=== PATIENT | female | born 1970 | race Caucasian/White ===

== ENCOUNTER → 2019-09-22 | Outpatient (REF) | payer OTHER ==
[2019-09-22 13:23] LABS: BASO % 0.4 % (0.0-1.0); EOS # 0.2 10^3/uL (0.0-0.5); EOS % 3.4 % (0.0-3.0); HEMATOCRIT 42.4 % (36.0-47.0); HEMOGLOBIN 13.4 g/dl (12.0-15.5); LYMPH # 1.6 10^3/uL (1.5-5.0); LYMPH % 34.7 % (24.0-44.0); MEAN CORPUSCULAR HEMOGLOBIN 30.2 pg (27.0-33.0); MEAN CORPUSCULAR HGB CONC 31.6 g/dl (32.0-36.5); MEAN CORPUSCULAR VOLUME 95.7 fl (80.0-96.0); MONO # 0.3 10^3/uL (0.0-0.8); MONO % 5.8 % (0.0-5.0); NEUTROPHILS # 2.6 10^3/uL (1.5-8.5); NEUTROPHILS % 55.5 % (36.0-66.0); PLATELET COUNT, AUTOMATED 306 10^3/uL (150-450); RED BLOOD COUNT 4.43 10^6/uL (4.00-5.40); WHITE BLOOD COUNT 4.6 10^3/uL (4.0-10.0)
[2019-09-22 13:47] LABS: ALBUMIN 4.6 GM/DL (3.2-5.2); ALT/SGPT 20 U/L (12-78); BILIRUBIN,TOTAL 0.3 MG/DL (0.2-1.0); BLOOD UREA NITROGEN 14 MG/DL (7-18); CALCIUM LEVEL 9.7 MG/DL (8.5-10.1); CARBON DIOXIDE LEVEL 29 MEQ/L (21-32); CHLORIDE LEVEL 109 MEQ/L (98-107); CREATININE FOR GFR 0.81 MG/DL (0.55-1.30); GLOMERULAR FILTRATION RATE > 60.0 (>51); GLUCOSE, FASTING 83 MG/DL (70-100); POTASSIUM SERUM 4.4 MEQ/L (3.5-5.1); RHEUMATOID FACTOR QUANT < 10.0 IU/ML (<15.0); SODIUM LEVEL 142 MEQ/L (136-145); TOTAL PROTEIN 7.7 GM/DL (6.4-8.2)
[2019-09-22 13:55] LABS: FOLATE 11.9 NG/ML; TOTAL 25(OH) VITAMIN D 15.7 NG/ML (30.0-100.0); VITAMIN B12 LEVEL 251 PG/ML
[2019-09-22 13:59] LABS: ERYTHROCYTE SEDIMENTATION RATE 6 mm/hr (0-30)
[2019-09-23 14:42] LABS: ANTINUCLEAR ANTIBODIES DIRECT Negative (Negative)
== END ==
LOC: M LABNEURO 12:57
PROVIDERS: ATTEND Psychiatry & Neurology Neurology
DX: R51 Headache (principal)

== ENCOUNTER 2023-01-29 15:39 | Inpatient (IN) | payer OTHER ==
[~2023-01-29] VITALS: Ht 160 cm; Wt 70.5 kg
[2023-01-29] MEDS ORDERED: TRAZ-257 PO (15:48)
[2023-01-29] MEDS ORDERED: SIMV20TA22 PO (15:48)
[2023-01-29] MEDS ORDERED: LAMO100T3 PO (15:48)
[2023-01-29] MEDS ORDERED: ESTR625TA PO (15:48)
[2023-01-29] MEDS ORDERED: ZIPR60CA20 PO (15:48)
[2023-01-29 17:25] LABS: HEMATOCRIT 39.5 % (36.0-47.0); HEMOGLOBIN 12.6 g/dl (12.0-15.5); MEAN CORPUSCULAR HGB CONC 31.9 g/dl (32.0-36.5); PLATELET COUNT, AUTOMATED 262 10^3/uL (150-450); WHITE BLOOD COUNT 6.1 10^3/uL (4.0-10.0)
[2023-01-29 17:30] LABS: AMPHETAMINES LEVEL URINE NEGATIVE (NEGATIVE); BARBITURATES URINE NEGATIVE (NEGATIVE); BENZODIAZEPINES URINE NEGATIVE (NEGATIVE); COCAINE METABOLITE URINE NEGATIVE (NEGATIVE); METHADONE URINE NEGATIVE (NEGATIVE); OPIATES URINE NEGATIVE (NEGATIVE); PHENCYCLIDINE URINE NEGATIVE (NEGATIVE)
[2023-01-29 17:31] LABS: CANNABINOIDS URINE NEGATIVE (NEGATIVE)
[2023-01-29 17:47] LABS: ETHYL ALCOHOL (ETHANOL) < 0.003 % (0.000-0.010)
[2023-01-29 17:48] LABS: ACETAMINOPHEN LEVEL < 2.0 UG/ML (10.0-20.0)
[2023-01-29 17:49] LABS: ALBUMIN 4.4 G/DL (3.2-5.2); ALKALINE PHOSPHATASE 69 U/L (46-116); ALT/SGPT 18 U/L (7.0-40); AST/SGOT < 8 U/L (<34); BILIRUBIN,DIRECT 0.1 MG/DL (<0.4); BILIRUBIN,TOTAL 0.4 MG/DL (0.3-1.2); BLOOD UREA NITROGEN 11 MG/DL (9-23); CARBON DIOXIDE LEVEL 28 MMOL/L (20-31); CHLORIDE LEVEL 102 MMOL/L (98-107); CREATININE FOR GFR 0.71 MG/DL (0.55-1.30); GLOMERULAR FILTRATION RATE > 60.0 (>51); GLUCOSE, FASTING 76 MG/DL (60-100); POTASSIUM SERUM 4.2 MMOL/L (3.5-5.1); SALICYLATE LEVEL < 3.0 MG/DL (<30); SODIUM LEVEL 138 MMOL/L (136-145); TOTAL PROTEIN 7.2 G/DL (5.7-8.2)
[2023-01-29 17:50] LABS: THYROID STIMULATING HORMONE 5.095 uIU/ML (0.55-4.78)
[2023-01-29] MEDS ORDERED: AZIT-12 PO (20:45)
[2023-01-29] MEDS ORDERED: MUCI30TA5 PO (20:45)
[2023-01-29] MEDS ORDERED: ACET-897 PO (20:45)
[2023-01-29] MEDS ORDERED: HOME MED LIST COMPLETE! XX SCH (20:45)
[2023-01-29] MEDS ORDERED: BENZ200C70 PO (20:45)
[2023-01-29] MEDS ORDERED: lamoTRIgine 100MG TAB PO SCH (21:00)
[2023-01-29] MEDS ORDERED: traZODone 100 MG TAB PO SCH (21:00)
[2023-01-29] MEDS ORDERED: MAALOX 30 ML SUSP *UDC PO PRN (23:05)
[2023-01-29] MEDS: SIMVASTATIN 20 MG TAB PO SCH (23:29)
[2023-01-30 00:45] VITALS: BP 150/67
[2023-01-30] MEDS: ACETAMINOPHEN TAB 650MG DOSE (2X325MG) PO PRN ×2 (04:42→17:12)
[2023-01-30 06:31] VITALS: BP 140/63
[2023-01-30] MEDS: MOM 30ML SUSPENSION UDC PO PRN (08:33)
[2023-01-30] MEDS: ZIPRASIDONE 80 MG CAP (GEODON) PO SCH (17:08)
[2023-01-30 17:19] VITALS: BP 129/62
[2023-01-30] MEDS ORDERED: ZIPRASIDONE 20MG CAPSULE (GEODON) PO SCH (18:00)
[2023-01-30] MEDS: lamoTRIgine 100MG TAB PO SCH (20:38)
[2023-01-30] MEDS: SIMVASTATIN 20 MG TAB PO SCH (20:38)
[2023-01-30] MEDS: traZODone 50 MG TAB PO SCH (20:38)
[2023-01-30] MEDS: oxyBUTYnin 5 MG TAB PO SCH (20:38)
[2023-01-31 06:55] VITALS: BP 117/61
[2023-01-31] MEDS: ACETAMINOPHEN TAB 650MG DOSE (2X325MG) PO PRN (07:08)
[2023-01-31] MEDS: lamoTRIgine 100MG TAB PO SCH ×2 (08:35→21:22)
[2023-01-31] MEDS: oxyBUTYnin 5 MG TAB PO SCH ×2 (08:35→21:22)
[2023-01-31] MEDS ORDERED: hydrOXYzine 50 MG TAB PO PRN (11:20)
[2023-01-31] MEDS ORDERED: SUMAtriptan SUCCINATE 25 MG TAB PO ONE (11:20)
[2023-01-31] MEDS: MOM 30ML SUSPENSION UDC PO PRN (15:12)
[2023-01-31] MEDS: OLANZapine ORAL DISINTEGRATING TAB 5MG PO PRN (15:14)
[2023-01-31] MEDS: ZIPRASIDONE 80 MG CAP (GEODON) PO SCH (18:16)
[2023-01-31 18:26] VITALS: BP 138/82
[2023-01-31] MEDS: SIMVASTATIN 20 MG TAB PO SCH (21:22)
[2023-01-31] MEDS: traZODone 50 MG TAB PO SCH (21:22)
[2023-02-01 06:40] VITALS: BP 131/75
[2023-02-01] MEDS: oxyBUTYnin 5 MG TAB PO SCH ×2 (09:00→21:16)
[2023-02-01] MEDS: lamoTRIgine 100MG TAB PO SCH ×2 (09:00→21:16)
[2023-02-01 09:34] LABS: CHOLESTEROL RISK RATIO 1.81 (<5); HDL CHOLESTEROL 123.8 MG/DL (>40); NON-HDL-C 101.2 MG/DL
[2023-02-01] MEDS: MOM 30ML SUSPENSION UDC PO PRN (11:20)
[2023-02-01] MEDS: OLANZapine ORAL DISINTEGRATING TAB 5MG PO PRN (11:23)
[2023-02-01] MEDS ORDERED: diphenhydrAMINE 25MG CAP PO ONE (16:25)
[2023-02-01] MEDS: ZIPRASIDONE 80 MG CAP (GEODON) PO SCH (17:24)
[2023-02-01 17:30] VITALS: BP 120/81
[2023-02-01] MEDS: traZODone 50 MG TAB PO SCH (21:16)
[2023-02-01] MEDS: SIMVASTATIN 20 MG TAB PO SCH (21:16)
[2023-02-02 05:51] VITALS: BP 137/62
[2023-02-02] MEDS: lamoTRIgine 100MG TAB PO SCH ×2 (09:09→20:08)
[2023-02-02] MEDS: oxyBUTYnin 5 MG TAB PO SCH ×2 (09:09→20:08)
[2023-02-02] MEDS: ACETAMINOPHEN TAB 650MG DOSE (2X325MG) PO PRN (13:06)
[2023-02-02 16:20] VITALS: BP 136/68
[2023-02-02] MEDS ORDERED: ISOVUE-370 76% 100ML VIAL As Ordered ONE (16:23)
[2023-02-02] MEDS: ZIPRASIDONE 80 MG CAP (GEODON) PO SCH (17:04)
[2023-02-02 17:25] LABS: APPEARANCE, URINE CLEAR (CLEAR); BACTERIA, URINE AUTO NEGATIVE (NEGATIVE); BILIRUBIN, URINE AUTO NEGATIVE (NEGATIVE); BLOOD, URINE BLOOD NEGATIVE (NEGATIVE); COLOR, URINE STRAW (YELLOW); GLUCOSE, URINE (UA) AUTO NEGATIVE (NEGATIVE); KETONE, URINE AUTO NEGATIVE (NEGATIVE); LEUKOCYTE ESTERASE, URINE AUTO NEGATIVE (NEGATIVE); NITRITE, URINE AUTO NEGATIVE (NEGATIVE); PROTEIN, URINE AUTO NEGATIVE (NEGATIVE); RBC, URINE AUTO 0 /HPF (0-3); SPECIFIC GRAVITY URINE AUTO 1.027 (1.002-1.035); SQUAMOUS EPITHELIAL CELL UR AU 4 /HPF (0-6); UROBILINOGEN, URINE AUTO 0.2 mg/dL (0.0-2.0); WBC, URINE AUTO 1 /HPF (0-3)
[2023-02-02 17:35] VITALS: BP 137/63
[2023-02-02 18:00] VITALS: BP 137/63
[2023-02-02] MEDS ORDERED: ONDANSETRON 4MG ORAL DISINTEGRATING TAB PO PRN (20:00)
[2023-02-02] MEDS: SIMVASTATIN 20 MG TAB PO SCH (20:08)
[2023-02-02] MEDS: traZODone 100 MG TAB PO PRN (20:08)
[2023-02-02] MEDS: TAMSULOSIN 0.4 MG CAP PO SCH (20:11)
[2023-02-02] MEDS: IBUPROFEN 800 MG TAB PO PRN (23:48)
[2023-02-03 06:42] VITALS: BP 132/59
[2023-02-03] MEDS: lamoTRIgine 100MG TAB PO SCH ×2 (08:13→20:08)
[2023-02-03] MEDS: oxyBUTYnin 5 MG TAB PO SCH ×2 (08:14→20:08)
[2023-02-03] MEDS: IBUPROFEN 800 MG TAB PO PRN ×2 (08:14→16:43)
[2023-02-03] MEDS: ACETAMINOPHEN TAB 650MG DOSE (2X325MG) PO PRN (10:02)
[2023-02-03 17:26] VITALS: BP 145/63
[2023-02-03] MEDS: ZIPRASIDONE 80 MG CAP (GEODON) PO SCH (18:22)
[2023-02-03] MEDS ORDERED: LAMO100T80 PO (19:24)
[2023-02-03] MEDS ORDERED: HYDR-3363 PO (19:24)
[2023-02-03] MEDS ORDERED: OXYB5TAB10 PO (19:24)
[2023-02-03] MEDS ORDERED: GEOD80CA PO (19:24)
[2023-02-03] MEDS ORDERED: FLOM0.4C39 PO (19:24)
[2023-02-03] MEDS ORDERED: TRAZ-257 PO (19:24)
[2023-02-03] MEDS: TAMSULOSIN 0.4 MG CAP PO SCH (20:08)
[2023-02-03] MEDS: SIMVASTATIN 20 MG TAB PO SCH (20:08)
[2023-02-03] MEDS: traZODone 100 MG TAB PO PRN (20:09)
[2023-02-04 06:32] VITALS: BP 143/70
[2023-02-04] MEDS: oxyBUTYnin 5 MG TAB PO SCH (09:13)
[2023-02-04] MEDS: lamoTRIgine 100MG TAB PO SCH (09:13)
== END 2023-02-04 13:14 | disposition home or self-care (01) | DRG 750 ==
LOC: M ED 15:39 → M ED INP 19:45 → M PSY 01-30 00:45
PROVIDERS: ADMIT Student in an Organized Health Care Education/Training Program; ATTEND Psychiatry & Neurology Psychiatry
DX: F25.0 Schizoaffective disorder, bipolar type (principal); K59.00 Constipation, unspecified; N32.89 Other specified disorders of bladder; G43.909 Migraine, unspecified, not intractable, without status migrainosus; R10.9 Unspecified abdominal pain; R11.2 Nausea with vomiting, unspecified; Z79.899 Other long term (current) drug therapy; Z88.0 Allergy status to penicillin; Z81.8 Family history of other mental and behavioral disorders; Z88.1 Allergy status to other antibiotic agents; Z88.2 Allergy status to sulfonamides; Z88.8 Allergy status to other drugs, medicaments and biological substances

== ENCOUNTER 2023-03-30 06:22 | Inpatient (IN) | payer OTHER ==
[~2023-03-30] VITALS: Ht 160 cm; Wt 62.8 kg
[~2023-03-30 06:22] MED LIST: ACET-897 PO; AZIT-12 PO; BENZ200C70 PO; ESTR625TA PO; FLOM0.4C39 PO; GEOD80CA PO; HYDR-3363 PO; LAMO100T3 PO; LAMO100T80 PO; MUCI30TA5 PO; OXYB5TAB10 PO; SIMV20TA22 PO; TRAZ-257 PO; ZIPR60CA20 PO
[2023-03-30 07:33] LABS: HEMATOCRIT 42.3 % (36.0-47.0); HEMOGLOBIN 13.8 g/dl (12.0-15.5); MEAN CORPUSCULAR HEMOGLOBIN 30.2 pg (27.0-33.0); MEAN CORPUSCULAR HGB CONC 32.6 g/dl (32.0-36.5); MEAN CORPUSCULAR VOLUME 92.6 fl (80.0-96.0); PLATELET COUNT, AUTOMATED 214 10^3/uL (150-450); RED BLOOD COUNT 4.57 10^6/uL (4.00-5.40); WHITE BLOOD COUNT 4.1 10^3/uL (4.0-10.0)
[2023-03-30 08:04] LABS: AMPHETAMINES LEVEL URINE NEGATIVE (NEGATIVE); BARBITURATES URINE NEGATIVE (NEGATIVE); BENZODIAZEPINES URINE NEGATIVE (NEGATIVE); CANNABINOIDS URINE NEGATIVE (NEGATIVE); COCAINE METABOLITE URINE NEGATIVE (NEGATIVE); METHADONE URINE NEGATIVE (NEGATIVE); OPIATES URINE NEGATIVE (NEGATIVE); PHENCYCLIDINE URINE NEGATIVE (NEGATIVE)
[2023-03-30 08:07] LABS: ETHYL ALCOHOL (ETHANOL) < 0.003 % (0.000-0.010)
[2023-03-30 08:08] LABS: ACETAMINOPHEN LEVEL < 2.0 UG/ML (10.0-20.0); SALICYLATE LEVEL < 3.0 MG/DL (<30)
[2023-03-30 08:14] LABS: ALBUMIN 4.9 G/DL (3.2-5.2); ALKALINE PHOSPHATASE 59 U/L (46-116); ALT/SGPT 20 U/L (7.0-40); AST/SGOT 9 U/L (<34); BILIRUBIN,DIRECT 0.2 MG/DL (<0.4); BILIRUBIN,TOTAL 0.6 MG/DL (0.3-1.2); BLOOD UREA NITROGEN 18 MG/DL (9-23); CALCIUM LEVEL 10.3 MG/DL (8.5-10.1); CARBON DIOXIDE LEVEL 28 MMOL/L (20-31); CHLORIDE LEVEL 101 MMOL/L (98-107); CREATININE FOR GFR 0.82 MG/DL (0.55-1.30); GLOMERULAR FILTRATION RATE > 60.0 (>51); GLUCOSE, FASTING 85 MG/DL (60-100); SODIUM LEVEL 138 MMOL/L (136-145); THYROID STIMULATING HORMONE 3.348 uIU/ML (0.55-4.78); TOTAL PROTEIN 7.3 G/DL (5.7-8.2)
[2023-03-30 10:07] LABS: APPEARANCE, URINE CLEAR (CLEAR); BACTERIA, URINE AUTO NEGATIVE (NEGATIVE); BILIRUBIN, URINE AUTO NEGATIVE (NEGATIVE); BLOOD, URINE BLOOD NEGATIVE (NEGATIVE); COLOR, URINE YELLOW (YELLOW); GLUCOSE, URINE (UA) AUTO NEGATIVE (NEGATIVE); KETONE, URINE AUTO TRACE mg/dL (NEGATIVE); LEUKOCYTE ESTERASE, URINE AUTO NEGATIVE (NEGATIVE); NITRITE, URINE AUTO NEGATIVE (NEGATIVE); PROTEIN, URINE AUTO NEGATIVE (NEGATIVE); RBC, URINE AUTO 1 /HPF (0-3); SPECIFIC GRAVITY URINE AUTO 1.024 (1.002-1.035); SQUAMOUS EPITHELIAL CELL UR AU 1 /HPF (0-6); UROBILINOGEN, URINE AUTO 0.2 mg/dL (0.0-2.0); WBC, URINE AUTO 2 /HPF (0-3)
[2023-03-30] MEDS ORDERED: LORazepam 1 MG TAB PO ONE (11:55)
[2023-03-30] MEDS ORDERED: PHENAZOPYRIDINE 100 MG TAB PO ONE (11:55)
[2023-03-30] MEDS ORDERED: MAALOX 30 ML SUSP *UDC PO PRN (18:40)
[2023-03-30] MEDS ORDERED: MOM 30ML SUSPENSION UDC PO PRN (18:40)
[2023-03-30] MEDS ORDERED: OLANZapine ORAL DISINTEGRATING TAB 5MG PO PRN (18:40)
[2023-03-30 20:16] VITALS: BP 125/58; TEMP 97.6; O2SAT 98
[2023-03-30] MEDS ORDERED: ZIPR80CA30 PO (20:26)
[2023-03-30] MEDS ORDERED: OXYB10TA23 PO (20:29)
[2023-03-30] MEDS ORDERED: TRAZ-189 PO (20:29)
[2023-03-30] MEDS ORDERED: PANT40TA29 PO (20:29)
[2023-03-30] MEDS ORDERED: TAMS1CAP17 PO (20:29)
[2023-03-30] MEDS ORDERED: LAMO100T3 PO (20:29)
[2023-03-30] MEDS ORDERED: HOME MED LIST COMPLETE! XX SCH (20:30)
[2023-03-30] MEDS: traZODone 50 MG TAB PO PRN (20:57)
[2023-03-30] MEDS: ACETAMINOPHEN TAB 650MG DOSE (2X325MG) PO PRN (21:02)
[2023-03-31 06:56] VITALS: BP 113/69; TEMP 97; O2SAT 97
[2023-03-31] MEDS: ACETAMINOPHEN TAB 650MG DOSE (2X325MG) PO PRN ×2 (07:36→20:16)
[2023-03-31] MEDS: IBUPROFEN 400MG TAB PO PRN (08:17)
[2023-03-31] MEDS: oxyBUTYnin 5 MG TAB PO SCH ×2 (14:19→20:15)
[2023-03-31 18:00] VITALS: BP 146/78; TEMP 97
[2023-03-31] MEDS: traZODone 50 MG TAB PO PRN (20:16)
[2023-03-31] MEDS ORDERED: PALIPERIDONE 3MG ER TAB (INVEGA) PO SCH (21:00)
[2023-04-01] MEDS: IBUPROFEN 400MG TAB PO PRN ×2 (02:24→11:46)
[2023-04-01] MEDS: ACETAMINOPHEN TAB 650MG DOSE (2X325MG) PO PRN (04:27)
[2023-04-01 06:42] VITALS: BP 130/61; TEMP 97.3; O2SAT 98
[2023-04-01] MEDS: oxyBUTYnin 5 MG TAB PO SCH ×2 (08:04→20:18)
[2023-04-01] MEDS: PANTOPRAZOLE 40MG TAB (PROTONIX) PO SCH ×2 (14:26→20:18)
[2023-04-01] MEDS: SUMAtriptan SUCCINATE 25 MG TAB PO PRN (17:41)
[2023-04-01 18:06] VITALS: BP 140/63; TEMP 98.1; O2SAT 99
[2023-04-01] MEDS: TAMSULOSIN 0.4 MG CAP PO SCH (20:18)
[2023-04-01] MEDS: PALIPERIDONE 3MG ER TAB (INVEGA) PO SCH (20:18)
[2023-04-01] MEDS: SIMVASTATIN 20 MG TAB PO SCH (20:18)
[2023-04-01] MEDS ORDERED: traZODone 100 MG TAB PO SCH (21:00)
[2023-04-02] MEDS: ACETAMINOPHEN TAB 650MG DOSE (2X325MG) PO PRN (04:36)
[2023-04-02 06:49] VITALS: BP 115/62; TEMP 97.7; O2SAT 99
[2023-04-02] MEDS ORDERED: lamoTRIgine 25MG TAB PO ONE (08:50)
[2023-04-02] MEDS ORDERED: BACLOFEN 10 MG TAB PO ONE (08:55)
[2023-04-02] MEDS: PALIPERIDONE 3MG ER TAB (INVEGA) PO SCH ×2 (09:09→20:21)
[2023-04-02] MEDS: PANTOPRAZOLE 40MG TAB (PROTONIX) PO SCH ×2 (09:09→20:21)
[2023-04-02] MEDS: oxyBUTYnin 5 MG TAB PO SCH ×2 (09:09→20:21)
[2023-04-02 16:48] VITALS: BP 129/60; TEMP 98.5; O2SAT 96
[2023-04-02] MEDS: TAMSULOSIN 0.4 MG CAP PO SCH (20:21)
[2023-04-02] MEDS: SIMVASTATIN 20 MG TAB PO SCH (20:21)
[2023-04-02] MEDS: traZODone 100 MG TAB PO PRN (20:21)
[2023-04-03] MEDS: SUMAtriptan SUCCINATE 25 MG TAB PO PRN (03:50)
[2023-04-03 06:54] VITALS: BP 152/70; TEMP 97.1; O2SAT 97
[2023-04-03] MEDS: PALIPERIDONE 3MG ER TAB (INVEGA) PO SCH ×2 (08:01→20:17)
[2023-04-03] MEDS: lamoTRIgine 25MG TAB PO SCH (08:02)
[2023-04-03] MEDS: oxyBUTYnin 5 MG TAB PO SCH ×2 (08:02→20:17)
[2023-04-03] MEDS: IBUPROFEN 400MG TAB PO PRN (08:02)
[2023-04-03] MEDS: PANTOPRAZOLE 40MG TAB (PROTONIX) PO SCH ×2 (08:02→20:17)
[2023-04-03] MEDS: LIDOCAINE 5% (LIDODERM) PATCH TD SCH (10:52)
[2023-04-03 16:51] VITALS: BP 128/62; TEMP 98.2; O2SAT 95
[2023-04-03] MEDS: TAMSULOSIN 0.4 MG CAP PO SCH (20:17)
[2023-04-03] MEDS: traZODone 100 MG TAB PO PRN (20:17)
[2023-04-03] MEDS: SIMVASTATIN 20 MG TAB PO SCH (20:17)
[2023-04-04] MEDS: SUMAtriptan SUCCINATE 25 MG TAB PO PRN (05:55)
[2023-04-04 06:18] VITALS: BP 123/64; TEMP 97.9; O2SAT 96
[2023-04-04 06:56] LABS: CHOLESTEROL RISK RATIO 2.27 (<5); HDL CHOLESTEROL 87.3 MG/DL (>40); LDL CHOLESTEROL 78.3 MG/DL (<100); NON-HDL-C 111.7 MG/DL
[2023-04-04] MEDS: oxyBUTYnin 5 MG TAB PO SCH ×2 (09:13→20:21)
[2023-04-04] MEDS: PANTOPRAZOLE 40MG TAB (PROTONIX) PO SCH ×2 (09:14→20:21)
[2023-04-04] MEDS: PALIPERIDONE 3MG ER TAB (INVEGA) PO SCH ×2 (09:14→20:21)
[2023-04-04] MEDS: lamoTRIgine 25MG TAB PO SCH (09:14)
[2023-04-04] MEDS: LIDOCAINE 5% (LIDODERM) PATCH TD SCH (09:14)
[2023-04-04] MEDS ORDERED: PALIPERIDONE PAL 234MG/1.5ML INJ (INVEGA)(FREE PSY INPT ONLY) IM ONE (12:00)
[2023-04-04 18:58] VITALS: BP 138/71; TEMP 97.6
[2023-04-04] MEDS: TAMSULOSIN 0.4 MG CAP PO SCH (20:21)
[2023-04-04] MEDS: SIMVASTATIN 20 MG TAB PO SCH (20:21)
[2023-04-04] MEDS: traZODone 100 MG TAB PO PRN (20:21)
[2023-04-05] MEDS: SUMAtriptan SUCCINATE 25 MG TAB PO PRN (06:07)
[2023-04-05 06:15] VITALS: BP 135/62; TEMP 98.9; O2SAT 98
[2023-04-05] MEDS ORDERED: INVE234I IM (07:01)
[2023-04-05] MEDS ORDERED: LIDO5TD TD (07:01)
[2023-04-05] MEDS ORDERED: PALI1TAB2 PO (07:01)
[2023-04-05] MEDS ORDERED: LAMI25TA PO (07:01)
[2023-04-05] MEDS ORDERED: SUMA25TA3 PO (08:59)
[2023-04-05] MEDS: PANTOPRAZOLE 40MG TAB (PROTONIX) PO SCH (09:18)
[2023-04-05] MEDS: oxyBUTYnin 5 MG TAB PO SCH (09:18)
[2023-04-05] MEDS: lamoTRIgine 25MG TAB PO SCH (09:18)
[2023-04-05] MEDS: PALIPERIDONE 3MG ER TAB (INVEGA) PO SCH (09:18)
[2023-04-05] MEDS: LIDOCAINE 5% (LIDODERM) PATCH TD SCH (09:21)
== END 2023-04-05 10:24 | disposition home or self-care (01) | DRG 750 ==
LOC: EDBD 06:22 → M ED 06:22 → M ED INP 18:40 → M PSY 20:01
PROVIDERS: ADMIT Student in an Organized Health Care Education/Training Program; ATTEND Student in an Organized Health Care Education/Training Program
DX: F25.0 Schizoaffective disorder, bipolar type (principal); G43.909 Migraine, unspecified, not intractable, without status migrainosus; R45.851 Suicidal ideations; Z87.442 Personal history of urinary calculi; M54.31 Sciatica, right side; M54.32 Sciatica, left side; Z79.899 Other long term (current) drug therapy; Z88.0 Allergy status to penicillin; Z88.1 Allergy status to other antibiotic agents; Z88.2 Allergy status to sulfonamides; Z88.8 Allergy status to other drugs, medicaments and biological substances

== ENCOUNTER 2023-08-12 12:17 | Inpatient (IN) | payer MEDICAID, OTHER ==
[~2023-08-12] VITALS: Ht 160 cm; Wt 63.0 kg
[~2023-08-12 12:17] MED LIST changes: +INVE234I IM; +LAMI25TA PO; +LIDO5TD TD; +OXYB10TA23 PO; -OXYB5TAB10 PO; +OXYB5TAB11 PO; +PALI1TAB2 PO; +PANT40TA29 PO; +SUMA25TA3 PO; +TAMS1CAP17 PO; +TRAZ-189 PO; +ZIPR80CA30 PO
[2023-08-12 12:45] LABS: HEMATOCRIT 35.9 % (36.0-47.0); HEMOGLOBIN 11.8 g/dl (12.0-15.5); MEAN CORPUSCULAR HEMOGLOBIN 30.6 pg (27.0-33.0); MEAN CORPUSCULAR HGB CONC 32.9 g/dl (32.0-36.5); PLATELET COUNT, AUTOMATED 245 10^3/uL (150-450); RED BLOOD COUNT 3.86 10^6/uL (4.00-5.40); WHITE BLOOD COUNT 5.8 10^3/uL (4.0-10.0)
[2023-08-12 13:09] LABS: AMPHETAMINES LEVEL URINE NEGATIVE (NEGATIVE); BARBITURATES URINE NEGATIVE (NEGATIVE); BENZODIAZEPINES URINE NEGATIVE (NEGATIVE); COCAINE METABOLITE URINE NEGATIVE (NEGATIVE); METHADONE URINE NEGATIVE (NEGATIVE); OPIATES URINE NEGATIVE (NEGATIVE)
[2023-08-12 13:10] LABS: CANNABINOIDS URINE NEGATIVE (NEGATIVE); PHENCYCLIDINE URINE NEGATIVE (NEGATIVE)
[2023-08-12 13:13] LABS: ETHYL ALCOHOL (ETHANOL) 0.005 % (0.000-0.010)
[2023-08-12 13:15] LABS: ALBUMIN 3.9 G/DL (3.2-5.2); ALKALINE PHOSPHATASE 74 U/L (46-116); ALT/SGPT 14 U/L (7.0-40); AST/SGOT 11 U/L (<34); BILIRUBIN,DIRECT < 0.1 MG/DL (<0.4); BILIRUBIN,TOTAL < 0.2 MG/DL (0.3-1.2); BLOOD UREA NITROGEN 13 MG/DL (9-23); CALCIUM LEVEL 9.7 MG/DL (8.5-10.1); CARBON DIOXIDE LEVEL 25 MMOL/L (20-31); CHLORIDE LEVEL 103 MMOL/L (98-107); CREATININE FOR GFR 0.71 MG/DL (0.55-1.30); GLOMERULAR FILTRATION RATE > 60.0 (>51); GLUCOSE, FASTING 108 MG/DL (60-100); POTASSIUM SERUM 4.1 MMOL/L (3.5-5.1); SALICYLATE LEVEL < 3.0 MG/DL (<30); SODIUM LEVEL 139 MMOL/L (136-145); TOTAL PROTEIN 6.6 G/DL (5.7-8.2)
[2023-08-12 13:17] LABS: THYROID STIMULATING HORMONE 4.838 uIU/ML (0.55-4.78)
[2023-08-12] MEDS ORDERED: MOM 30ML SUSPENSION UDC PO PRN (19:10)
[2023-08-12] MEDS ORDERED: MAALOX 30 ML SUSP *UDC PO PRN (19:10)
[2023-08-12] MEDS ORDERED: IBUPROFEN 400MG TAB PO PRN (19:10)
[2023-08-12] MEDS ORDERED: diphenhydrAMINE 25MG CAP PO PRN (19:10)
[2023-08-12] MEDS ORDERED: LAMI1TAB7 PO (20:24)
[2023-08-12 21:02] VITALS: BP 130/60; TEMP 98.2; O2SAT 98
[2023-08-12] MEDS ORDERED: VITA100093 PO (22:16)
[2023-08-12] MEDS ORDERED: LAMO25TA4 PO (22:16)
[2023-08-12] MEDS ORDERED: FLON1SPR NARES (22:16)
[2023-08-12] MEDS ORDERED: INVE234I IM (22:16)
[2023-08-12] MEDS ORDERED: HYDR-3363 PO (22:16)
[2023-08-12] MEDS ORDERED: SUMA25TA3 PO (22:16)
[2023-08-12] MEDS ORDERED: HOME MED LIST COMPLETE! XX SCH (22:20)
[2023-08-12] MEDS: traZODone 100 MG TAB PO SCH (22:35)
[2023-08-12] MEDS: PALIPERIDONE 3MG ER TAB (INVEGA) PO SCH (22:37)
[2023-08-13] MEDS ORDERED: UNRESOLVED CLARIFICATION ENTRY XX SCH (00:01)
[2023-08-13] MEDS: ACETAMINOPHEN TAB 650MG DOSE (2X325MG) PO PRN (04:44)
[2023-08-13 06:15] VITALS: BP 113/55; TEMP 97; O2SAT 98
[2023-08-13] MEDS: lamoTRIgine 25MG TAB PO SCH (08:46)
[2023-08-13] MEDS: PALIPERIDONE 3MG ER TAB (INVEGA) PO SCH ×2 (08:46→20:57)
[2023-08-13] MEDS ORDERED: LORazepam 2 MG TAB PO ONE (10:00)
[2023-08-13] MEDS ORDERED: SUMAtriptan SUCCINATE 25 MG TAB PO PRN (10:35)
[2023-08-13 17:58] VITALS: BP 108/54; TEMP 96.9; O2SAT 96
[2023-08-13] MEDS: traZODone 100 MG TAB PO SCH (20:46)
[2023-08-13] MEDS ORDERED: FLUTICASONE PROP 0.05% NASAL SPRAY 16 GM (FLONASE) NARES PRN (21:20)
[2023-08-13] MEDS: VITAMIN D 1,000 INTERNATIONAL UNITS TABLET PO SCH (21:41)
[2023-08-13] MEDS: SIMVASTATIN 20 MG TAB PO SCH (21:41)
[2023-08-13] MEDS: PANTOPRAZOLE 40MG TAB (PROTONIX) PO SCH (21:41)
[2023-08-14 06:15] VITALS: BP 119/66; TEMP 97.4; O2SAT 97
[2023-08-14] MEDS ORDERED: PREMARIN 0.625 MG PO SCH (09:00)
[2023-08-14] MEDS ORDERED: INFLUENZA QUADRIVALENT PF VACCINE 0.5ML SYRINGE IM.IMMUN ONE (09:00)
[2023-08-14] MEDS: PANTOPRAZOLE 40MG TAB (PROTONIX) PO SCH ×2 (10:07→20:16)
[2023-08-14] MEDS: lamoTRIgine 25MG TAB PO SCH (10:08)
[2023-08-14] MEDS: PALIPERIDONE 3MG ER TAB (INVEGA) PO SCH ×2 (10:08→20:15)
[2023-08-14 15:37] VITALS: BP 137/61; TEMP 98.7; O2SAT 99
[2023-08-14] MEDS: traZODone 100 MG TAB PO SCH (20:15)
[2023-08-14] MEDS: VITAMIN D 1,000 INTERNATIONAL UNITS TABLET PO SCH (20:15)
[2023-08-14] MEDS: SIMVASTATIN 20 MG TAB PO SCH (20:16)
[2023-08-15] MEDS: ACETAMINOPHEN TAB 650MG DOSE (2X325MG) PO PRN (00:09)
[2023-08-15 06:42] VITALS: BP 126/72; TEMP 97.9; O2SAT 96
[2023-08-15] MEDS ORDERED: PALI1TAB2 PO (07:51)
[2023-08-15] MEDS: PALIPERIDONE 3MG ER TAB (INVEGA) PO SCH ×2 (08:12→20:22)
[2023-08-15] MEDS: PANTOPRAZOLE 40MG TAB (PROTONIX) PO SCH ×2 (08:12→20:21)
[2023-08-15] MEDS: lamoTRIgine 25MG TAB PO SCH (08:12)
[2023-08-15 16:19] VITALS: BP_SYST 147; BP_DIAS 60; BP_DIAS 62; TEMP 97; O2SAT 96
[2023-08-15] MEDS: VITAMIN D 1,000 INTERNATIONAL UNITS TABLET PO SCH (20:21)
[2023-08-15] MEDS: SIMVASTATIN 20 MG TAB PO SCH (20:21)
[2023-08-15] MEDS: traZODone 100 MG TAB PO SCH (20:22)
[2023-08-16 06:29] VITALS: BP 164/66; TEMP 97.7; O2SAT 95
[2023-08-16] MEDS: PALIPERIDONE 3MG ER TAB (INVEGA) PO SCH (08:42)
[2023-08-16] MEDS: PANTOPRAZOLE 40MG TAB (PROTONIX) PO SCH (08:42)
[2023-08-16] MEDS: lamoTRIgine 25MG TAB PO SCH (08:42)
== END 2023-08-16 10:33 | disposition home or self-care (01) | DRG 750 ==
LOC: M ED 12:17 → M ED INP 19:10 → M PSY 21:02
PROVIDERS: ADMIT Student in an Organized Health Care Education/Training Program; ATTEND Student in an Organized Health Care Education/Training Program
DX: F25.0 Schizoaffective disorder, bipolar type (principal); F43.9 Reaction to severe stress, unspecified; R45.851 Suicidal ideations; G43.909 Migraine, unspecified, not intractable, without status migrainosus; Z81.8 Family history of other mental and behavioral disorders; Z91.410 Personal history of adult physical and sexual abuse; Z87.442 Personal history of urinary calculi; Z79.899 Other long term (current) drug therapy; Z88.0 Allergy status to penicillin; Z88.1 Allergy status to other antibiotic agents; Z88.2 Allergy status to sulfonamides; Z88.8 Allergy status to other drugs, medicaments and biological substances; Z81.3 Family history of other psychoactive substance abuse and dependence

== ENCOUNTER 2023-11-05 12:51 | Inpatient (IN) | payer MEDICAID, OTHER ==
[~2023-11-05] VITALS: Ht 160 cm; Wt 69.6 kg
[~2023-11-05 12:51] MED LIST changes: +FLON1SPR NARES; +LAMI1TAB7 PO; +LAMO25TA4 PO; +VITA100093 PO
[2023-11-05 13:59] LABS: HEMATOCRIT 36.6 % (36.0-47.0); HEMOGLOBIN 12.2 g/dl (12.0-15.5); MEAN CORPUSCULAR HEMOGLOBIN 30.4 pg (27.0-33.0); MEAN CORPUSCULAR HGB CONC 33.3 g/dl (32.0-36.5); MEAN CORPUSCULAR VOLUME 91.3 fl (80.0-96.0); PLATELET COUNT, AUTOMATED 248 10^3/uL (150-450); RED BLOOD COUNT 4.01 10^6/uL (4.00-5.40); WHITE BLOOD COUNT 6.4 10^3/uL (4.0-10.0)
[2023-11-05 14:16] LABS: ETHYL ALCOHOL (ETHANOL) < 0.003 % (0.000-0.010)
[2023-11-05 14:18] LABS: ALBUMIN 3.9 G/DL (3.2-5.2); ALKALINE PHOSPHATASE 76 U/L (46-116); ALT/SGPT 13 U/L (7.0-40); AST/SGOT < 8 U/L (<34); BILIRUBIN,DIRECT < 0.1 MG/DL (<0.4); BILIRUBIN,TOTAL 0.3 MG/DL (0.3-1.2); BLOOD UREA NITROGEN 14 MG/DL (9-23); CALCIUM LEVEL 9.5 MG/DL (8.5-10.1); CARBON DIOXIDE LEVEL 26 MMOL/L (20-31); CHLORIDE LEVEL 104 MMOL/L (98-107); GLOMERULAR FILTRATION RATE > 60.0 (>51); GLUCOSE, FASTING 78 MG/DL (60-100); POTASSIUM SERUM 4.1 MMOL/L (3.5-5.1); SALICYLATE LEVEL < 3.0 MG/DL (<30); SODIUM LEVEL 136 MMOL/L (136-145); TOTAL PROTEIN 7.1 G/DL (5.7-8.2)
[2023-11-05 14:20] LABS: THYROID STIMULATING HORMONE 5.737 uIU/ML (0.55-4.78)
[2023-11-05 14:26] LABS: AMPHETAMINES LEVEL URINE NEGATIVE (NEGATIVE)
[2023-11-05 14:27] LABS: BARBITURATES URINE NEGATIVE (NEGATIVE); BENZODIAZEPINES URINE NEGATIVE (NEGATIVE)
[2023-11-05 14:28] LABS: CANNABINOIDS URINE NEGATIVE (NEGATIVE); COCAINE METABOLITE URINE NEGATIVE (NEGATIVE); METHADONE URINE NEGATIVE (NEGATIVE); OPIATES URINE NEGATIVE (NEGATIVE); PHENCYCLIDINE URINE NEGATIVE (NEGATIVE)
[2023-11-05 14:30] LABS: HCG, SERUM QUALITATIVE NEGATIVE (NEGATIVE)
[2023-11-05] MEDS ORDERED: OLANZapine 5 MG TAB PO PRN (14:55)
[2023-11-05] MEDS ORDERED: diphenhydrAMINE 25MG CAP PO PRN (14:55)
[2023-11-05] MEDS ORDERED: MAALOX 30 ML SUSP *UDC PO PRN (14:55)
[2023-11-05] MEDS ORDERED: MOM 30ML SUSPENSION UDC PO PRN (14:55)
[2023-11-05] MEDS ORDERED: traZODone 50 MG TAB PO PRN (14:55)
[2023-11-05] MEDS ORDERED: INVE6TAB3 PO (18:23)
[2023-11-05] MEDS ORDERED: HYDR-3363 PO (18:24)
[2023-11-05] MEDS ORDERED: HOME MED LIST COMPLETE! XX SCH (18:30)
[2023-11-05 22:01] VITALS: BP 127/60; TEMP 98.7; O2SAT 98
[2023-11-06] MEDS: ACETAMINOPHEN TAB 650MG DOSE (2X325MG) PO PRN (05:59)
[2023-11-06 06:20] VITALS: BP 128/88; TEMP 97.8; O2SAT 96
[2023-11-06] MEDS ORDERED: FLUTICASONE PROP 0.05% NASAL SPRAY 16 GM (FLONASE) NARES PRN (09:20)
[2023-11-06 11:40] LABS: FREE T3 3.3 PG/ML (2.3-4.2); FREE T4 1.22 NG/DL (0.89-1.76); THYROID STIMULATING HORMONE 5.043 uIU/ML (0.55-4.78)
[2023-11-06 17:16] VITALS: BP 135/63; TEMP 97.8; O2SAT 99
[2023-11-06] MEDS: SIMVASTATIN 20 MG TAB PO SCH (20:03)
[2023-11-06] MEDS: PALIPERIDONE 6MG ER TAB (INVEGA) PO SCH (20:03)
[2023-11-06] MEDS: VITAMIN D 1,000 INTERNATIONAL UNITS TABLET PO SCH (20:03)
[2023-11-06] MEDS: hydrOXYzine 50 MG TAB PO SCH (20:04)
[2023-11-06] MEDS ORDERED: lamoTRIgine 25MG TAB PO SCH (21:00)
[2023-11-06] MEDS ORDERED: lamoTRIgine 100MG TAB PO SCH (21:00)
[2023-11-07 05:58] VITALS: BP 136/59; TEMP 97.3; O2SAT 96
[2023-11-07 07:04] LABS: CHOLESTEROL RISK RATIO 2.07 (<5); HDL CHOLESTEROL 116.9 MG/DL (>40); LDL CHOLESTEROL 105.7 MG/DL (<100); NON-HDL-C 125.1 MG/DL
[2023-11-07] MEDS: IBUPROFEN 400MG TAB PO PRN ×2 (08:16→20:59)
[2023-11-07] MEDS ORDERED: SUMAtriptan SUCCINATE 25 MG TAB PO ONE (10:15)
[2023-11-07] MEDS: ACETAMINOPHEN TAB 650MG DOSE (2X325MG) PO PRN (12:46)
[2023-11-07 16:03] VITALS: BP 113/53; TEMP 98.9; O2SAT 100
[2023-11-07] MEDS: VITAMIN D 1,000 INTERNATIONAL UNITS TABLET PO SCH (20:59)
[2023-11-07] MEDS: SIMVASTATIN 20 MG TAB PO SCH (20:59)
[2023-11-07] MEDS: hydrOXYzine 50 MG TAB PO SCH (20:59)
[2023-11-07] MEDS: PALIPERIDONE 6MG ER TAB (INVEGA) PO SCH (20:59)
[2023-11-07] MEDS ORDERED: lamoTRIgine 100MG TAB PO SCH (21:00)
[2023-11-08 06:13] VITALS: BP 125/58; TEMP 97; O2SAT 96
[2023-11-08] MEDS: ACETAMINOPHEN TAB 650MG DOSE (2X325MG) PO PRN (08:21)
[2023-11-08] MEDS ORDERED: SUMAtriptan SUCCINATE 25 MG TAB PO ONE (09:15)
[2023-11-08 09:35] VITALS: BP 131/62; TEMP 98.6; O2SAT 97
[2023-11-08] MEDS ORDERED: NITROGLYCERIN 0.4MG SUBL TABLET SL STA (10:54)
[2023-11-08 11:00] VITALS: BP 142/67; TEMP 97.7; O2SAT 96
[2023-11-08] MEDS ORDERED: ISOVUE-370 76% 100ML VIAL As Ordered ONE (11:19)
[2023-11-08] MEDS ORDERED: CARVedilol 3.125 MG TAB PO ONE (11:30)
[2023-11-08 11:53] LABS: CK-MB VALUE MASS < 1.0 NG/ML (<3.6)
[2023-11-08] MEDS ORDERED: SUCRALFATE SUSP 1GM/10ML UD PO ONE (12:00)
[2023-11-08] MEDS ORDERED: MAALOX 30 ML SUSP *UDC PO ONE (12:00)
[2023-11-08] MEDS ORDERED: ONDANSETRON 4MG ORAL DISINTEGRATING TAB PO ONE (12:00)
[2023-11-08 12:06] LABS: BLOOD UREA NITROGEN 16 MG/DL (9-23); CALCIUM LEVEL 9.4 MG/DL (8.5-10.1); CARBON DIOXIDE LEVEL 27 MMOL/L (20-31); CHLORIDE LEVEL 108 MMOL/L (98-107); CPK CREATINE PHOSPHOKINASE 41 U/L (34-145); CREATININE FOR GFR 0.72 MG/DL (0.55-1.30); GLOMERULAR FILTRATION RATE > 60.0 (>51); GLUCOSE, FASTING 96 MG/DL (60-100); MB/CK RELATIVE INDEX 2.43 (< OR =4); POTASSIUM SERUM 5.5 MMOL/L (3.5-5.1); SODIUM LEVEL 141 MMOL/L (136-145)
[2023-11-08 12:36] VITALS: BP 168/98
[2023-11-08 12:39] VITALS: BP 168/98
[2023-11-08] MEDS ORDERED: SCOPOLAMINE 1MG TRANSDERMAL PATCH TOP ONE (13:00)
[2023-11-08] MEDS ORDERED: HYDR-3363 PO (13:58)
[2023-11-08] MEDS ORDERED: LAMO25TA4 PO (13:58)
[2023-11-08] MEDS ORDERED: PATIROMER SORBITEX CALCIUM 8.4 GM POWDER PACKET (VELTASSA) PO ONE (16:00)
[2023-11-09] MEDS ORDERED: PANT40TA29 PO (07:26)
[2023-11-09] MEDS ORDERED: SUCR1TA PO (07:26)
[2023-12-06] MEDS ORDERED: PALIPERIDONE PAL 234MG/1.5ML INJ (INVEGA)(FREE PSY INPT ONLY) IM SCH (09:00)
== END 2023-11-08 14:40 | disposition short-term general hospital (02) | DRG 750 ==
LOC: M ED 12:51 → M ED INP 14:53 → M PSY 21:22
PROVIDERS: ADMIT Student in an Organized Health Care Education/Training Program; ATTEND Student in an Organized Health Care Education/Training Program
DX: F25.0 Schizoaffective disorder, bipolar type (principal); E87.5 Hyperkalemia; R45.851 Suicidal ideations; E05.90 Thyrotoxicosis, unspecified without thyrotoxic crisis or storm; R07.9 Chest pain, unspecified; G43.909 Migraine, unspecified, not intractable, without status migrainosus; Z79.899 Other long term (current) drug therapy; Z88.0 Allergy status to penicillin; Z88.1 Allergy status to other antibiotic agents; Z81.8 Family history of other mental and behavioral disorders; Z91.410 Personal history of adult physical and sexual abuse; Z88.2 Allergy status to sulfonamides; Z88.8 Allergy status to other drugs, medicaments and biological substances

== ENCOUNTER 2023-11-08 13:25 | Observation (INO) | payer OTHER ==
[~2023-11-08] VITALS: Ht 160 cm; Wt 71.3 kg
[~2023-11-08 13:25] MED LIST changes: +INVE6TAB3 PO
[2023-11-08] MEDS ORDERED: HYDR-3363 PO (13:58)
[2023-11-08] MEDS ORDERED: LAMO25TA4 PO (13:58)
[2023-11-08] MEDS ORDERED: NITROGLYCERIN 0.4MG SUBL TABLET SL PRN (14:00)
[2023-11-08] MEDS: METOPROLOL TART 25 MG TABLET PO SCH ×2 (14:00→20:15)
[2023-11-08] MEDS ORDERED: OLANZapine 5 MG TAB PO PRN (14:05)
[2023-11-08] MEDS ORDERED: diphenhydrAMINE 25MG CAP PO PRN (14:05)
[2023-11-08] MEDS ORDERED: MAALOX 30 ML SUSP *UDC PO PRN (14:05)
[2023-11-08] MEDS ORDERED: SENOKOT S TAB PO PRN (14:05)
[2023-11-08] MEDS ORDERED: MORPHINE 2 MG/ML 1ML VIAL IV PRN (14:10)
[2023-11-08] MEDS ORDERED: FIORICET TAB PO PRN (14:25)
[2023-11-08] MEDS ORDERED: PERCOCET 5MG/325MG TAB PO PRN (14:25)
[2023-11-08 15:01] VITALS: BP 132/60; TEMP 97.6; O2SAT 96
[2023-11-08 16:00] VITALS: BP 123/56; TEMP 97.8; O2SAT 98
[2023-11-08] MEDS ORDERED: CALCIUM GLUCONATE 1,000 MG in D5W MINI-BAG PLUS 100 ML IV ONE (16:00)
[2023-11-08] MEDS ORDERED: ASPIRIN 81MG CHEW TABLET PO ONE (16:00)
[2023-11-08] MEDS ORDERED: KETOROLAC 30 MG/ML 1ML VIAL IV ONE (16:00)
[2023-11-08] MEDS ORDERED: FIORICET TAB PO ONE (16:00)
[2023-11-08] MEDS ORDERED: PATIROMER SORBITEX CALCIUM 8.4 GM POWDER PACKET (VELTASSA) PO ONE (16:00)
[2023-11-08] MEDS: SUCRALFATE 1 GM TAB PO SCH ×2 (17:05→20:18)
[2023-11-08 19:07] LABS: CK-MB VALUE MASS < 1.0 NG/ML (<3.6)
[2023-11-08 19:14] LABS: CPK CREATINE PHOSPHOKINASE 46 U/L (34-145); MB/CK RELATIVE INDEX 2.17 (< OR =4)
[2023-11-08 19:40] VITALS: BP 160/74; TEMP 97.3; O2SAT 95
[2023-11-08 20:16] VITALS: BP 115/56
[2023-11-08] MEDS: PANTOPRAZOLE 40MG TAB (PROTONIX) PO SCH (20:17)
[2023-11-08] MEDS: hydrOXYzine 50 MG TAB PO SCH (20:18)
[2023-11-08] MEDS: VITAMIN D 1,000 INTERNATIONAL UNITS TABLET PO SCH (20:18)
[2023-11-08] MEDS: SIMVASTATIN 20 MG TAB PO SCH (20:18)
[2023-11-08] MEDS: PALIPERIDONE 6MG ER TAB (INVEGA) PO SCH (20:18)
[2023-11-08] MEDS: traZODone 50 MG TAB PO PRN (20:19)
[2023-11-08] MEDS: lamoTRIgine 100MG TAB PO SCH (20:19)
[2023-11-09 00:06] VITALS: BP 117/56; TEMP 97.6; O2SAT 96
[2023-11-09] MEDS ORDERED: ACETAMINOPHEN TAB 650MG DOSE (2X325MG) PO PRN (00:20)
[2023-11-09 00:38] LABS: POTASSIUM SERUM 4.2 MMOL/L (3.5-5.1)
[2023-11-09 00:44] LABS: CK-MB VALUE MASS < 1.0 NG/ML (<3.6)
[2023-11-09 00:49] LABS: CPK CREATINE PHOSPHOKINASE 28 U/L (34-145); MB/CK RELATIVE INDEX 3.57 (< OR =4)
[2023-11-09 03:33] VITALS: BP 103/53; TEMP 97.6; O2SAT 95
[2023-11-09 05:42] VITALS: BP 110/52
[2023-11-09] MEDS: METOPROLOL TART 25 MG TABLET PO SCH (05:42)
[2023-11-09 06:14] LABS: HEMATOCRIT 33.9 % (36.0-47.0); HEMOGLOBIN 11.2 g/dl (12.0-15.5); MEAN CORPUSCULAR HEMOGLOBIN 29.9 pg (27.0-33.0); MEAN CORPUSCULAR VOLUME 90.6 fl (80.0-96.0); PLATELET COUNT, AUTOMATED 245 10^3/uL (150-450); RED BLOOD COUNT 3.74 10^6/uL (4.00-5.40); WHITE BLOOD COUNT 5.3 10^3/uL (4.0-10.0)
[2023-11-09 06:44] LABS: BLOOD UREA NITROGEN 17 MG/DL (9-23); CALCIUM LEVEL 9.8 MG/DL (8.5-10.1); CARBON DIOXIDE LEVEL 26 MMOL/L (20-31); CHLORIDE LEVEL 106 MMOL/L (98-107); CHOLESTEROL LEVEL 216 MG/DL (<200); CHOLESTEROL RISK RATIO 2.02 (<5); CK-MB VALUE MASS < 1.0 NG/ML (<3.6); CPK CREATINE PHOSPHOKINASE 41 U/L (34-145); CREATININE FOR GFR 0.66 MG/DL (0.55-1.30); GLOMERULAR FILTRATION RATE > 60.0 (>51); GLUCOSE, FASTING 75 MG/DL (60-100); HDL CHOLESTEROL 106.5 MG/DL (>40); LDL CHOLESTEROL 71.3 MG/DL (<100); MB/CK RELATIVE INDEX 2.43 (< OR =4); NON-HDL-C 109.5 MG/DL; POTASSIUM SERUM 4.5 MMOL/L (3.5-5.1); SODIUM LEVEL 135 MMOL/L (136-145); TRIGLYCERIDES LEVEL 191 MG/DL (<150)
[2023-11-09 07:20] LABS: HEMOGLOBIN A1c 5.5 % (4.0-6.0)
[2023-11-09] MEDS ORDERED: SUCR1TA PO (07:26)
[2023-11-09] MEDS ORDERED: PANT40TA29 PO (07:26)
[2023-11-09 08:06] VITALS: BP 113/54; TEMP 96.7; O2SAT 98
[2023-11-09] MEDS: ASPIRIN 81MG CHEW TABLET PO SCH (08:11)
[2023-11-09] MEDS: PANTOPRAZOLE 40MG TAB (PROTONIX) PO SCH ×2 (08:11→20:03)
[2023-11-09] MEDS: SUCRALFATE 1 GM TAB PO SCH ×4 (08:11→20:03)
[2023-11-09] MEDS: MOM 30ML SUSPENSION UDC PO SCH (08:11)
[2023-11-09] MEDS: ENOXAPARIN 40MG/0.4ML SYRINGE (J1650 PER 10MG) SC SCH (08:12)
[2023-11-09] MEDS: FLUTICASONE PROP 0.05% NASAL SPRAY 16 GM (FLONASE) NARES SCH (08:27)
[2023-11-09 18:15] VITALS: BP 110/74; TEMP 98.1; O2SAT 97
[2023-11-09] MEDS: PALIPERIDONE 6MG ER TAB (INVEGA) PO SCH (20:03)
[2023-11-09] MEDS: lamoTRIgine 100MG TAB PO SCH (20:03)
[2023-11-09] MEDS: traZODone 50 MG TAB PO PRN (20:03)
[2023-11-09] MEDS: SIMVASTATIN 20 MG TAB PO SCH (20:03)
[2023-11-09] MEDS: VITAMIN D 1,000 INTERNATIONAL UNITS TABLET PO SCH (20:03)
[2023-11-09] MEDS: hydrOXYzine 50 MG TAB PO SCH (20:03)
[2023-11-10 04:36] VITALS: BP 110/65; TEMP 97.5; O2SAT 96
[2023-11-10] MEDS: PANTOPRAZOLE 40MG TAB (PROTONIX) PO SCH ×2 (08:17→22:26)
[2023-11-10] MEDS: MOM 30ML SUSPENSION UDC PO SCH (08:17)
[2023-11-10] MEDS: ASPIRIN 81MG CHEW TABLET PO SCH (08:17)
[2023-11-10] MEDS: SUCRALFATE 1 GM TAB PO SCH ×4 (08:17→22:27)
[2023-11-10] MEDS: ENOXAPARIN 40MG/0.4ML SYRINGE (J1650 PER 10MG) SC SCH (08:18)
[2023-11-10] MEDS: FLUTICASONE PROP 0.05% NASAL SPRAY 16 GM (FLONASE) NARES SCH (08:39)
[2023-11-10] MEDS: SIMVASTATIN 20 MG TAB PO SCH (22:26)
[2023-11-10] MEDS: lamoTRIgine 100MG TAB PO SCH (22:26)
[2023-11-10] MEDS: VITAMIN D 1,000 INTERNATIONAL UNITS TABLET PO SCH (22:27)
[2023-11-10] MEDS: hydrOXYzine 50 MG TAB PO SCH (22:28)
[2023-11-10] MEDS: PALIPERIDONE 6MG ER TAB (INVEGA) PO SCH (22:28)
[2023-11-11 05:32] VITALS: BP 121/72; TEMP 97.9; O2SAT 99
[2023-11-11] MEDS: SUCRALFATE 1 GM TAB PO SCH ×4 (07:30→22:02)
[2023-11-11] MEDS: FLUTICASONE PROP 0.05% NASAL SPRAY 16 GM (FLONASE) NARES SCH (09:00)
[2023-11-11] MEDS: MOM 30ML SUSPENSION UDC PO SCH (12:06)
[2023-11-11] MEDS: PANTOPRAZOLE 40MG TAB (PROTONIX) PO SCH ×2 (12:07→22:02)
[2023-11-11] MEDS: ENOXAPARIN 40MG/0.4ML SYRINGE (J1650 PER 10MG) SC SCH (12:07)
[2023-11-11] MEDS: ASPIRIN 81MG CHEW TABLET PO SCH (12:07)
[2023-11-11] MEDS ORDERED: PILL CUTTER 1 EACH XX ONE (21:58)
[2023-11-11] MEDS: lamoTRIgine 100MG TAB PO SCH (22:01)
[2023-11-11] MEDS: PALIPERIDONE 6MG ER TAB (INVEGA) PO SCH (22:01)
[2023-11-11] MEDS: hydrOXYzine 50 MG TAB PO SCH (22:02)
[2023-11-11] MEDS: SIMVASTATIN 20 MG TAB PO SCH (22:02)
[2023-11-11] MEDS: VITAMIN D 1,000 INTERNATIONAL UNITS TABLET PO SCH (22:02)
[2023-11-12 05:38] VITALS: BP 113/75; TEMP 97.5; O2SAT 97
[2023-11-12 06:00] VITALS: BP 113/75; TEMP 97.5; O2SAT 97
[2023-11-12] MEDS: SUCRALFATE 1 GM TAB PO SCH ×3 (10:57→17:30)
[2023-11-12] MEDS: FLUTICASONE PROP 0.05% NASAL SPRAY 16 GM (FLONASE) NARES SCH (10:57)
[2023-11-12] MEDS: ASPIRIN 81MG CHEW TABLET PO SCH (10:57)
[2023-11-12] MEDS: ENOXAPARIN 40MG/0.4ML SYRINGE (J1650 PER 10MG) SC SCH (10:57)
[2023-11-12] MEDS: PANTOPRAZOLE 40MG TAB (PROTONIX) PO SCH (10:57)
[2023-11-12] MEDS: MOM 30ML SUSPENSION UDC PO SCH (11:01)
[2023-11-13] MEDS ORDERED: LAMI1TAB7 PO (10:08)
[2023-11-13] MEDS ORDERED: HYDR-3363 PO (10:08)
[2023-11-13] MEDS ORDERED: LAMO25TA4 PO (10:08)
[2023-11-13] MEDS ORDERED: INVE6TAB3 PO (10:08)
== END 2023-11-12 20:00 ==
LOC: M PCU 14:42 → INTOOBSV 14:42 → M MSPAV 11-09 17:56
PROVIDERS: ADMIT General Practice; ATTEND General Practice
DX: E87.5 Hyperkalemia (principal); R07.89 Other chest pain; T44.7X5A Adverse effect of beta-adrenoreceptor antagonists, initial encounter; R00.1 Bradycardia, unspecified; I16.0 Hypertensive urgency; F31.9 Bipolar disorder, unspecified; F25.8 Other schizoaffective disorders; D49.4 Neoplasm of unspecified behavior of bladder; G43.909 Migraine, unspecified, not intractable, without status migrainosus; Z79.899 Other long term (current) drug therapy; Z88.0 Allergy status to penicillin; Z88.1 Allergy status to other antibiotic agents; Z88.2 Allergy status to sulfonamides
CPT/HCPCS: 36415; 80048; 80061; 82550; 82553; 83036; 84132; 85027; 93005; 93306; 96361; 96374; 96375; J0612; J1650; J1885

== ENCOUNTER 2023-11-12 14:15 | Inpatient (IN) | payer OTHER ==
[~2023-11-12] VITALS: Ht 157.5 cm; Wt 55.0 kg
[~2023-11-12 14:15] MED LIST changes: +SUCR1TA PO
[2023-11-12] MEDS ORDERED: MOM 30ML SUSPENSION UDC PO PRN (18:25)
[2023-11-12] MEDS ORDERED: MAALOX 30 ML SUSP *UDC PO PRN (18:25)
[2023-11-12] MEDS ORDERED: ACETAMINOPHEN TAB 650MG DOSE (2X325MG) PO PRN (18:25)
[2023-11-12] MEDS ORDERED: diphenhydrAMINE 25MG CAP PO PRN (18:25)
[2023-11-12] MEDS ORDERED: IBUPROFEN 400MG TAB PO PRN (18:25)
[2023-11-12] MEDS ORDERED: traZODone 50 MG TAB PO PRN (18:25)
[2023-11-12] MEDS ORDERED: lamoTRIgine 100MG TAB PO SCH (21:00)
[2023-11-12] MEDS ORDERED: VITAMIN D 1,000 INTERNATIONAL UNITS TABLET PO SCH (21:00)
[2023-11-12] MEDS ORDERED: PALIPERIDONE 6MG ER TAB (INVEGA) PO SCH (21:00)
[2023-11-12] MEDS ORDERED: hydrOXYzine 50 MG TAB PO SCH (21:00)
[2023-11-12 21:03] VITALS: BP 113/75; TEMP 97.5; O2SAT 97
[2023-11-12] MEDS ORDERED: PILL CUTTER 1 EACH XX PRN (21:10)
[2023-11-13 06:58] VITALS: BP 138/58; TEMP 96.6; O2SAT 97
[2023-11-13] MEDS ORDERED: HYDR-3363 PO (10:08)
[2023-11-13] MEDS ORDERED: INVE6TAB3 PO (10:08)
[2023-11-13] MEDS ORDERED: LAMI1TAB7 PO (10:08)
[2023-11-13] MEDS ORDERED: LAMO25TA4 PO (10:08)
== END 2023-11-13 13:43 | disposition home or self-care (01) | DRG 750 ==
LOC: M PSY 20:04
PROVIDERS: ADMIT Student in an Organized Health Care Education/Training Program; ATTEND Student in an Organized Health Care Education/Training Program
DX: F25.0 Schizoaffective disorder, bipolar type (principal); Z81.3 Family history of other psychoactive substance abuse and dependence; Z81.8 Family history of other mental and behavioral disorders; F31.81 Bipolar II disorder; G43.909 Migraine, unspecified, not intractable, without status migrainosus; R07.9 Chest pain, unspecified; Z79.899 Other long term (current) drug therapy; Z88.0 Allergy status to penicillin; Z88.1 Allergy status to other antibiotic agents; Z88.2 Allergy status to sulfonamides; Z88.8 Allergy status to other drugs, medicaments and biological substances; Z87.442 Personal history of urinary calculi; Z91.410 Personal history of adult physical and sexual abuse

== ENCOUNTER 2025-08-11 10:57 | Inpatient (IN) | payer MEDICAID, OTHER ==
[~2025-08-11] VITALS: Ht 160 cm; Wt 57.8 kg
[~2025-08-11 10:57] MED LIST changes: -FLOM0.4C39 PO; +LAMO-18 PO; -LAMO25TA4 PO; -OXYB5TAB11 PO; +OXYB5TAB14 PO; +TAMS-18 PO
[2025-08-11 12:57] LABS: PLATELET COUNT, AUTOMATED 259 10^3/uL (150-450)
[2025-08-11] MEDS ORDERED: BENZ1TAB5 PO (13:18)
[2025-08-11] MEDS ORDERED: VILA10TA PO (13:19)
[2025-08-11 13:21] LABS: ETHYL ALCOHOL (ETHANOL) 0.004 % (0.000-0.010)
[2025-08-11 13:23] LABS: ALT/SGPT 20 U/L (7.0-40); AST/SGOT 17 U/L (<34); CALCIUM LEVEL 9.8 MG/DL (8.5-10.1); CARBON DIOXIDE LEVEL 26 MMOL/L (20-31); CHLORIDE LEVEL 105 MMOL/L (98-107); CREATININE FOR GFR 0.63 MG/DL (0.55-1.30); GLOMERULAR FILTRATION RATE > 90.0 (>51); POTASSIUM SERUM 4.1 MMOL/L (3.5-5.1); SALICYLATE LEVEL < 3.0 MG/DL (<30); SODIUM LEVEL 141 MMOL/L (136-145)
[2025-08-11] MEDS ORDERED: HOME MED LIST COMPLETE! XX SCH (13:25)
[2025-08-11 13:30] LABS: AMPHETAMINES LEVEL URINE NEGATIVE (NEGATIVE); BARBITURATES URINE NEGATIVE (NEGATIVE)
[2025-08-11 13:31] LABS: BENZODIAZEPINES URINE NEGATIVE (NEGATIVE); CANNABINOIDS URINE NEGATIVE (NEGATIVE); COCAINE METABOLITE URINE NEGATIVE (NEGATIVE); METHADONE URINE NEGATIVE (NEGATIVE); PHENCYCLIDINE URINE NEGATIVE (NEGATIVE)
[2025-08-11 13:32] LABS: OPIATES URINE POSITIVE (NEGATIVE)
[2025-08-11] MEDS ORDERED: MOM 30 ML SUSPENSION UDC PO PRN (14:25)
[2025-08-11] MEDS ORDERED: LORazepam 1 MG TAB PO PRN (14:25)
[2025-08-11] MEDS ORDERED: OLANZapine 5 MG TAB PO PRN (14:25)
[2025-08-11 15:30] VITALS: BP 128/58; TEMP 97.8; O2SAT 100
[2025-08-11] MEDS: NICOTINE 14 MG/24 HR TRANSDERMAL TD SCH (15:57)
[2025-08-11] MEDS: IBUPROFEN 400 MG TAB PO PRN (15:58)
[2025-08-11] MEDS: ACETAMINOPHEN 325 MG TAB PO PRN (20:15)
[2025-08-11] MEDS: traZODone 50 MG TAB PO PRN (20:15)
[2025-08-11 20:47] VITALS: BP 140/62; TEMP 97.6; O2SAT 98
[2025-08-11] MEDS: MAALOX 30 ML SUSP *UDC PO PRN (21:41)
[2025-08-11] MEDS: HALOPERIDOL 5 MG TAB PO PRN (21:41)
[2025-08-12 06:51] VITALS: BP 114/60; TEMP 97.3; O2SAT 98
[2025-08-12] MEDS: FLUZONE VACCINE TRI PF(25-26) 0.5ML SYRINGE IM.IMMUN ONE (09:35)
[2025-08-12 11:25] VITALS: BP 139/63; O2SAT 99
[2025-08-12] MEDS: PANTOPRAZOLE 40MG TAB PO SCH (12:13)
[2025-08-12 15:56] VITALS: BP 129/59; TEMP 97.1; O2SAT 98
[2025-08-12] MEDS: SUCRALFATE SUSP 1GM/10ML UD PO SCH (17:00)
[2025-08-12] MEDS: VITAMIN D 1,000 INTERNATIONAL UNITS TABLET PO SCH (20:08)
[2025-08-12] MEDS: lamoTRIgine 25 MG TAB PO SCH (20:08)
[2025-08-12 21:26] LABS: FREE T4 1.23 NG/DL (0.89-1.76)
[2025-08-13 06:54] VITALS: BP 128/58; TEMP 97.6; O2SAT 98
[2025-08-13] MEDS: PALIPERIDONE 3MG ER TAB PO SCH (08:16)
[2025-08-13 08:34] LABS: CHOLESTEROL LEVEL 234.0 MG/DL (<200); CHOLESTEROL RISK RATIO 2.67 (<5); LDL CHOLESTEROL 106.0 MG/DL (<100); NON-HDL-C 146.4 MG/DL; TRIGLYCERIDES LEVEL 202.0 MG/DL (<150)
[2025-08-13] MEDS ORDERED: PILL CUTTER 1 EACH XX PRN (10:55)
[2025-08-13 13:34] LABS: KETONE, URINE AUTO RFX NEGATIVE (NEGATIVE); LEUKOCYTE ESTERASE UR AUTO RFX NEGATIVE (NEGATIVE); MUCUS, URINE RFX SMALL (NEGATIVE); NITRITE, URINE AUTO RFX NEGATIVE (NEGATIVE); RBC, URINE AUTO RFX 0 /HPF (0-3); SQUAM EPITHELIAL CELL UR AURFX 1 /HPF (0-6); WBC, URINE AUTO RFX 1 /HPF (0-3)
[2025-08-13 14:55] VITALS: BP 135/63; TEMP 97.2; O2SAT 98
[2025-08-14 06:09] VITALS: BP 123/58; TEMP 98.2; O2SAT 99
[2025-08-14 15:58] VITALS: BP 130/62; TEMP 98.1; O2SAT 100
[2025-08-15 06:40] VITALS: BP 147/64; TEMP 98.7; O2SAT 100
[2025-08-15 15:55] VITALS: BP 139/62; TEMP 98.2; O2SAT 98
[2025-08-16 06:36] VITALS: BP 128/98; TEMP 98.3; O2SAT 95
[2025-08-16] MEDS ORDERED: traZODone 100 MG TAB PO PRN (09:40)
[2025-08-16 10:42] VITALS: BP 140/64; TEMP 97.6; O2SAT 97
[2025-08-16 15:16] VITALS: BP 136/56; TEMP 98; O2SAT 97
[2025-08-16] MEDS: MIRTAZAPINE 7.5 MG PER 1/2 TABLET PO SCH (20:13)
[2025-08-17 06:14] VITALS: BP 138/75; TEMP 97.6; O2SAT 99
[2025-08-17] MEDS: ONDANSETRON 4MG ORAL DISINTEGRATING TAB PO PRN (13:09)
[2025-08-17 18:10] VITALS: BP 142/67; TEMP 97; O2SAT 98
[2025-08-18 06:24] VITALS: BP 119/69; TEMP 97.9; O2SAT 96
[2025-08-18] MEDS ORDERED: PANT40TA29 PO (09:20)
[2025-08-18] MEDS ORDERED: ONDA-282 PO (09:20)
[2025-08-18] MEDS ORDERED: ABIL10TA9 PO (09:20)
[2025-08-18] MEDS ORDERED: MIRT1TAB PO (09:20)
[2025-08-18] MEDS ORDERED: PHAR25CA PO (09:20)
[2025-08-18] MEDS ORDERED: LAMI25TA PO (09:20)
== END 2025-08-18 11:26 | disposition home or self-care (01) | DRG 750 ==
LOC: M ED 10:57 → M ED INP 14:21 → M PSY 16:32
PROVIDERS: ADMIT Internal Medicine; ATTEND Psychiatry & Neurology Psychiatry
DX: F25.0 Schizoaffective disorder, bipolar type (principal); Z91.148 Patient's other noncompliance with medication regimen for other reason; R45.851 Suicidal ideations; F41.9 Anxiety disorder, unspecified; R94.6 Abnormal results of thyroid function studies; R07.9 Chest pain, unspecified; R63.4 Abnormal weight loss; Z56.0 Unemployment, unspecified; Z81.8 Family history of other mental and behavioral disorders; Z79.899 Other long term (current) drug therapy; Z88.0 Allergy status to penicillin; Z88.1 Allergy status to other antibiotic agents; Z88.2 Allergy status to sulfonamides; Z88.8 Allergy status to other drugs, medicaments and biological substances